=== PATIENT | male | born 1975 | race African-American/Black ===

== ENCOUNTER 2018-08-15 19:07 | Observation (INO) | payer OTHER ==
--- NOTE | 2018-08-15 19:11 | EDM.PDOC ---
ED HPI GENERAL MEDICAL PROBLEM - General Stated Complaint: AMBULANCE- Time Seen by Provider: 08/15/18 19:08 - History of Present Illness INITIAL COMMENTS - FREE TEXT/NARRATIVE: HISTORY AND PHYSICAL: History of present illness: Patient is a 42-year-old male who presents status post left ankle injury in which he missed a step going down stairs and sustained what appears to be an obvious fracture of his left ankle. He denies other trauma or concern. Review of systems: As per history of present illness and below otherwise all systems reviewed and negative. Past medical history: As per history of present illness and as reviewed below otherwise noncontributory. Surgical history: As per history of present illness and as reviewed below otherwise noncontributory. Social history: No reported history of drug or alcohol abuse. Family history: As per history of present illness and as reviewed below otherwise noncontributory. Physical exam: HEENT: Atraumatic, normocephalic, pupils reactive, negative for conjunctival pallor or scleral icterus, mucous membranes moist, throat clear, neck supple, nontender, trachea midline. Lungs: Clear to auscultation, breath sounds equal bilaterally, chest nontender. Heart: S1S2, regular, negative for clicks, rubs, or JVD. Abdomen: Soft, nondistended, nontender. Negative for masses or hepatosplenomegaly. Negative for costovertebral tenderness. Pelvis: Stable nontender. Genitourinary: Deferred. Rectal: Deferred. Extremities: Left ankle has seemingly obvious fracture noted noted with swelling and tenderness neurovascular exam is unremarkable. Neuro: Awake, alert, oriented. Cranial nerves II through XII unremarkable. Cerebellum unremarkable. Motor and sensory unremarkable throughout. Exam nonfocal. Diagnostics: X-ray left ankle Therapeutics: Posterior mold left ankle Impression: #1 acute left ankle injury (fracture) Definitive disposition and diagnosis as appropriate pending reevaluation and review of above. - Related Data Allergies Allergy/AdvReac Type Severity Reaction Status Date / Time No Known Allergies Allergy Verified 08/15/18 19:22 Home Meds: Home Meds . [No Known Home Meds] 08/15/18 [History] ED ROS GENERAL - Review of Systems Review Of Systems: ROS reveals no pertinent complaints other than HPI. ED EXAM, GENERAL - Physical Exam Exam: See Below (See dictation) Course - Vital Signs Last Recorded V/S: Last Vital Signs Temp 35.8 C 08/15/18 19:17 Pulse 80 08/15/18 19:17 Resp 16 08/15/18 19:17 BP 127/76 08/15/18 19:17 Pulse Ox 94 L 08/15/18 19:17 - Orders/Labs/Meds Orders: Active Orders 24 hr Category Date Time Status Patient Status [ADT] Routine ADT 08/15/18 21:06 Active Bedrest Bathroom Privileges [RC] ASDIRECTED Care 08/15/18 21:12 Active Communication Order [RC] DAILY Care 08/15/18 21:10 Active Verify Patient Consent Obtain [RC] ASDIRECTED Care 08/15/18 21:09 Active Vital Signs [RC] PER UNIT ROUTINE Care 08/15/18 21:10 Active Nothing per Oral After Midnight Diet [DIET] Diet 08/16/18 Breakfast Active Ankle 2V Lt [CR] Stat Exams 08/15/18 20:48 Taken Ankle wo Cont Lt [CT] Stat Exams 08/15/18 20:48 Taken Acetaminophen/oxyCODONE [Percocet 325-5 MG] Med 08/15/18 21:08 Active 1 tab PO Q4H PRN Lactated Ringers [Ringers, Lactated] 1,000 ml Med 08/16/18 03:00 Active IV ASDIRECTED Ondansetron [Zofran] Med 08/15/18 21:08 Active 4 mg IVPUSH Q4H PRN Medication Orders Lactated Ringer's (Ringers, Lactated) 1,000 mls @ 75 mls/hr IV ASDIRECTED [facility] Ondansetron HCl (Zofran) 4 mg IVPUSH Q4H PRN PRN Reason: Nausea/Vomiting Oxycodone/Acetaminophen (Percocet 325-5 Mg) 1 tab PO Q4H PRN PRN Reason: Pain Meds: Medications Generic Name Dose Route Start Last Admin Trade Name Freq PRN Reason Stop Dose Admin Lactated Ringer's 1,000 mls @ 75 mls/hr 08/16/18 03:00 Ringers, Lactated IV ASDIRECTED SAUL Ondansetron HCl 4 mg 08/15/18 21:08 Zofran IVPUSH Q4H PRN Nausea/Vomiting Oxycodone/Acetaminophen 1 tab 08/15/18 21:08 Percocet 325-5 Mg PO Q4H PRN Pain Discontinued Medications Generic Name Dose Route Start Last Admin Trade Name Angelia PRN Reason Stop Dose Admin Hydromorphone HCl Confirm 08/15/18 20:30 Dilaudid Administered 08/15/18 20:31 Dose 2 mg .ROUTE .STK-MED ONE Lidocaine HCl Confirm 08/15/18 20:24 Xylocaine-Mpf 1% Administered 08/15/18 20:25 Dose 5 mls @ as directed .ROUTE .STK-MED ONE Lidocaine HCl Confirm 08/15/18 20:26 Xylocaine-Mpf 1% Administered 08/15/18 20:27 Dose 5 mls @ as directed .ROUTE .STK-MED ONE Departure - Departure Time of Disposition: 21:29 Disposition: Refer to Observation Condition: Good Clinical Impression: Ankle fracture - Discharge Information
--- NOTE | 2018-08-15 20:13 | CR ---
Pain fall. Three views of the left ankle FINDINGS: Displaced fractures of the medial and lateral malleolus. Fractures of the distal fibula. Oblique fracture through the posterior distal tibia. Ankle dislocation with posterior displacement of talus in relationship to the tibia. Diffuse soft tissue swelling. Findings consistent with trimalleolar fracture with ankle dislocation. Dictated by Zenaida Arthur MD @ Aug 15 2018 8:01PM Signed by Dr. Zenaida Arthur @ Aug 15 2018 8:10PM
[2018-08-15] MEDS ORDERED: HYDROmorphone 2 MG/ML SDV IVPUSH ONE (20:30)
[2018-08-15] MEDS ORDERED: HYDROmorphone 2 MG/ML Syringe ONE (20:30)
[2018-08-15] MEDS ORDERED: Ondansetron 4 MG/2 ML SDV IVPUSH PRN (21:08)
--- NOTE | 2018-08-15 22:28 | CR ---
INDICATION: post reduction evaluation. COMPARISON: X-rays earlier the same day. FINDINGS: AP and cross-table lateral views of the left ankle demonstrate interval reduction and splinting of previously seen trimalleolar fracture dislocation injury. Alignment is near anatomic. No new acute osseous or soft tissue findings. IMPRESSION: Interval reduction and splinting of previously seen trimalleolar fracture-dislocation injury. Dictated by Petr Martinez MD @ 08/15/2018 10:24:04 PM Dictated by: Petr Martinez MD @ 08/15/2018 22:24:25 (Electronically Signed)
--- NOTE | 2018-08-15 22:38 | CT ---
INDICATION: Pain after fall. COMPARISON: Plain film same date. TECHNIQUE: Multi detector imaging left ankle with axial coronal and sagittal reformats. FINDINGS: Minimally comminuted fracture through the medial malleolus with 5 mm diastasis. Dominant fragment slightly anteriorly displaced as well. Fracture through the posterior malleolus with roughly 3 mm elevation of the fracture fragment causing mild incongruity of the articular contour. Stippled bony debris within the joint centrally as well as a displaced fragment in the posterior recess. None are measurably large. A few foci periarticular air along the anterior joint margin. Air in the soft tissues superficial to the extensor tendons. No air within the joint. Lateral malleolar fracture is intra-articular to the syndesmosis with 3-5 mm dorsal diastasis of the fracture fragment. Fracture extends to the tibiotalar ankle joint at the mortise but without displacement here. Hindfoot and visualized midfoot are normal. IMPRESSION: 1. Trimalleolar fracture with intra-articular tiny bony debris fragments in the tibiotalar ankle joint. Ankle mortise appears relatively maintained however there is some incongruity of the posterior tibial plafond articular contour and moderate diastasis across the medial malleolar fracture at the articular margin. 2. Air in the soft tissue anterior from the joint may be laceration related. Compound fracture felt unlikely given the pattern of fracture. Some of the deeper soft tissue may be nitrogen from traumatic vacuum phenomenon. Please note that all CT scans at this facility use dose modulation, iterative reconstruction, and/or weight-based dosing when appropriate to reduce radiation dose to as low as reasonably achievable. Dictated by Joseluis Cameron MD @ Aug 16 2018 8:29AM Signed by Dr. Joseluis Cameron @ Aug 16 2018 8:35AM
--- NOTE | 2018-08-15 23:36 | HP ---
DATE OF : 1975 PRIMARY CARE PHYSICIAN: Israel PCP DATE OF PLANNED SURGERY: 08/16/2018 HISTORY OF PRESENT ILLNESS: The patient presented to the ER this evening following a trip and fall while climbing down the stairs at approximately 6 p.m. He noted immediate pain, swelling, and deformity involving the ankle at that time. He denies additional injuries associated with the event. He denied pain involving other locations. He did not hit his head or lose consciousness. He had about 3 alcoholic drinks earlier in the afternoon. He denies previous injuries or issues with respect to this ankle. PAST MEDICAL HISTORY: The patient denies known medical issues although he does not see a doctor on a regular basis. PAST SURGICAL HISTORY: None. SOCIAL HISTORY: He smokes about one-half pack of cigarettes per day. He says that he has about 4 alcoholic drinks every other day on average. I asked both the patient and his , and he does not need to drink on a daily basis. He can go several days without drinking, without having any type of withdrawal symptoms. He is employed, working at an [employer] field. FAMILY HISTORY: Noncontributory. REVIEW OF SYSTEMS: He has been in his normal state of health recently. He denies a personal or family history of DVT/PE or bleeding/clotting problems associated with surgery. He has been in his normal state of health recently. PHYSICAL EXAMINATION: GENERAL: Reveals a well-appearing gentleman. He is in mild distress. HEART: He has a regular pulse by peripheral evaluation. LUNGS: There is no wheezing, and he has nonlabored respiration. HEENT: He is normocephalic and atraumatic. NEUROLOGIC: He displays appropriate judgment and normal affect. EXTREMITIES: Examination of his bilateral upper extremities as well as right lower extremity showed no evidence of trauma. No pain with active or passive range of motion. Examination of the left lower extremity shows no obvious bruising, swelling, or pain with palpation around the knee or hip. There is obvious swelling and deformity of the ankle. I do not see any lacerations or open areas indicative of open fracture. He does have a palpable dorsalis pedis pulse in spite of the obvious dislocation of the ankle. He has grossly intact sensation to light touch in the deep peroneal, superficial peroneal, and tibial nerve distributions. DIAGNOSTIC DATA: Results reviewed. Plain films of the ankle were reviewed. These show an obvious fracture/dislocation with posterior and lateral dislocation of the talus in relation to the tibia. There does appear to be a trimalleolar fracture with a small posterior malleolar component. ASSESSMENT: Left ankle fracture/dislocation. PLAN: I talked to the patient as well as his partner for some time. I recommend urgent reduction of the ankle followed by surgical fixation on a delayed basis. This could either be done tomorrow or delayed for 1 to 2 weeks. They prefer to have the surgery done tomorrow, so we will go ahead and admit the patient to the floor with plans for surgical intervention tomorrow. He will be n.p.o. at midnight. A closed reduction after a local block was performed in the emergency department. Please see the procedure note below. PROCEDURE NOTE: I initially injected a total of 10 mL of lidocaine intra-articularly following a thorough prep with ChloraPrep. When adequate analgesia was obtained, the ankle was reduced. It was quite unstable, but I was able to hold the reduction when a posterior and U-splint was placed. I molded this appropriately to maintain the reduction. The patient tolerated the procedure well, and there were no complications. Informed consent: Following a thorough discussion of the risks, benefits, expected outcomes, and alternatives, the patient did consent for the local block as well as reduction as described above. We also discussed surgical intervention to be performed tomorrow. A thorough discussion of the risks, benefits, expected outcomes, and alternatives of ankle ORIF was performed. Potential complications were discussed to include, but not limited to infection, neurovascular injury, hardware-related pain, failure or prominence, failure of the fracture to heal, persistent pain or disability in spite of surgery, need for additional surgery, and rarely loss of limb or life. In light of this information, the patient did wish to proceed with the operation. RICH / BAKARI /[id number]
[2018-08-16] MEDS: Lactated Ringers 1,000 ML IV SCH ×2 (03:12→22:04)
[2018-08-16] MEDS: Acetaminophen/oxyCODONE 325-5 MG Tab PO PRN ×2 (04:33→21:59)
[2018-08-16] MEDS ORDERED: ceFAZolin 2 GM in Premix Bag 1 BAG IV ONE (08:01)
--- NOTE | 2018-08-16 08:24 | PN ---
SUBJECTIVE: The patient reports overall he has done well overnight. He denies substantial pain involving the ankle. He denies additional questions regarding the planned surgical intervention for today. OBJECTIVE: VITAL SIGNS: The patient is afebrile. Vital signs were reviewed. He is saturating 92% on 2 L of oxygen via nasal cannula. EXTREMITIES: Examination of the ankle shows the splint to be in place. There is brisk capillary refill of the toes. He reports intact sensation to light touch involving the exposed portion of the dorsal and plantar aspect of the toes including the first dorsal interspace. He is able to flex and extend the toes. DIAGNOSTIC DATA: Results reviewed. Plain films and CT from last night were previously reviewed. These did confirm reduction as well as a trimalleolar fracture with a small posterior malleolar component, this involves less than 20% of the joint surface. ASSESSMENT: Status post reduction of ankle fracture-dislocation with planned definitive operative intervention for today. PLAN: Plan is to proceed with surgery as previously described. He will remain n.p.o. I will plan on fixation of the lateral and medial malleolar fractures with possible syndesmotic fixation as well. He will potentially be discharged to home following the operation versus tomorrow morning, if additional pain management is required. RICH / BAKARI /[id number]
[2018-08-16] MEDS ORDERED: Propofol 200 MG/20 ML SDV ONE (12:25)
[2018-08-16] MEDS ORDERED: Midazolam 1 MG/ML 2 ML SDV ONE (12:25)
[2018-08-16] MEDS ORDERED: Lidocaine 2% 5 ML SDV ONE (12:25)
[2018-08-16] MEDS ORDERED: Ondansetron 4 MG/2 ML SDV ONE (12:25)
[2018-08-16] MEDS ORDERED: fentaNYL 250 MCG/5 ML SDV ONE (12:25)
--- NOTE | 2018-08-16 13:55 | PCM.PREANE ---
Preanesthetic Assessment - Anesthesia/Transfusion/Family Hx Anesthesia History: Prior Anesthesia Without Reaction Family History of Anesthesia Reaction: No Transfusion History: No Prior Transfusion(s) - Review of Systems General: No Symptoms Pulmonary: No Symptoms Cardiovascular: No Symptoms Gastrointestinal: No Symptoms Neurological: No Symptoms Other: Reports: None - Physical Assessment NPO Status Date: 08/15/18 O2 Sat by Pulse Oximetry: 97 Respiratory Rate: 16 Vital Signs: Last Vital Signs Temp 98.2 F 08/16/18 12:00 Pulse 73 08/16/18 12:00 Resp 16 08/16/18 12:00 BP 131/94 H 08/16/18 12:00 Pulse Ox 97 08/16/18 12:00 Height: 6 ft 1 in Weight: 98.458 kg ASA Class: 2 Mental Status: Alert & Oriented x3 Airway Class: Mallampati = 2 Dentition: Reports: Missing Tooth/Teeth ROM/Head Extension: Full Lungs: Clear to Auscultation, Normal Respiratory Effort Cardiovascular: Regular Rate, Regular Rhythm - Allergies Allergies/Adverse Reactions: Allergies Allergy/AdvReac Type Severity Reaction Status Date / Time No Known Allergies Allergy Verified 08/15/18 19:22 - Blood Blood Available: No - Anesthesia Plan Pre-Op Medication Ordered: None - Acknowledgements Anesthesia Type Planned: General Anesthesia Pt an Appropriate Candidate for the Planned Anesthesia: Yes Alternatives and Risks of Anesthesia Discussed w Pt/Guardian: Yes Pt/Guardian Understands and Agrees with Anesthesia Plan: Yes Additional Comments: anes prob list: smoker PLAN: ga/lma PreAnesthesia Questionnaire - Past Health History Medical/Surgical History: Denies Medical/Surgical History - Past Surgical History GI Surgical History: Reports: Cholecystectomy - SUBSTANCE USE Smoking Status *Q: Current Every Day Smoker Tobacco Use Within Last Twelve Months: Cigarettes Second Hand Smoke Exposure: Yes Recreational Drug Use History: No - HOME MEDS Home Medications: Home Meds . [No Known Home Meds] 08/15/18 [History] - CURRENT (IN HOUSE) MEDS Current Meds: Current Medications Lactated Ringer's (Ringers, Lactated) 1,000 mls @ 75 mls/hr IV ASDIRECTED [facility] Last Admin: 08/16/18 03:12 Dose: 75 mls/hr Ondansetron HCl (Zofran) 4 mg IVPUSH Q4H PRN PRN Reason: Nausea/Vomiting Oxycodone/Acetaminophen (Percocet 325-5 Mg) 1 tab PO Q4H PRN PRN Reason: Pain Last Admin: 08/16/18 04:33 Dose: 1 tab Discontinued Medications Fentanyl (Sublimaze) Confirm Administered Dose 250 mcg .ROUTE .STK-MED ONE Stop: 08/16/18 12:26 Hydromorphone HCl (Dilaudid) Confirm Administered Dose 2 mg .ROUTE .STK-MED ONE Stop: 08/15/18 20:31 Last Admin: 08/16/18 00:21 Dose: Not Given Hydromorphone HCl (Dilaudid) 2 mg IVPUSH ONETIME ONE Stop: 08/15/18 20:31 Last Admin: 08/15/18 20:30 Dose: 2 mg Lidocaine HCl (Xylocaine-Mpf 1%) Confirm Administered Dose 5 mls @ as directed .ROUTE .STK-MED ONE Stop: 08/15/18 20:25 Last Admin: 08/16/18 00:48 Dose: Not Given Lidocaine HCl (Xylocaine-Mpf 1%) Confirm Administered Dose 5 mls @ as directed .ROUTE .STK-MED ONE Stop: 08/15/18 20:27 Last Admin: 08/16/18 00:52 Dose: Not Given Cefazolin Sodium/Dextrose 2 gm (/ Premix) 50 mls @ 100 mls/hr IV ONCALL ONE Stop: 08/16/18 08:30 Lidocaine (Xylocaine-Mpf 2%) Confirm Administered Dose 5 ml .ROUTE .STK-MED ONE Stop: 08/16/18 12:26 Lidocaine HCl (Xylocaine-Mpf 1%) 10 ml INJECT ONETIME ONE Stop: 08/15/18 20:26 Last Admin: 08/15/18 20:25 Dose: 10 ml Midazolam HCl (Versed 1 Mg/Ml) Confirm Administered Dose 2 mg .ROUTE .STK-MED ONE Stop: 08/16/18 12:26 Ondansetron HCl (Zofran) Confirm Administered Dose 4 mg .ROUTE .STK-MED ONE Stop: 08/16/18 12:26 Propofol (Diprivan 20 Ml) Confirm Administered Dose 200 mg .ROUTE .STK-MED ONE Stop: 08/16/18 12:26
[2018-08-16] MEDS ORDERED: Bupivacaine 0.25% 10 ML SDV ONE ×2 (14:12→17:28)
[2018-08-16] MEDS ORDERED: Glycopyrrolate 0.2 MG/ML SDV ONE ×2 (15:54→15:58)
[2018-08-16] MEDS ORDERED: Metoprolol Tartrate 5 MG/5 ML SDV ONE (16:05)
[2018-08-16] MEDS ORDERED: Phenylephrine/Normal Saline 100 MCG/ML 10 ML Syringe ONE ×2 (16:07→17:17)
[2018-08-16] MEDS ORDERED: Atropine 0.1 MG/ML 10 ML Syringe IVPUSH PRN ×2 (17:05)
[2018-08-16] MEDS ORDERED: Albuterol 0.083% 2.5 MG/3 ML Neb Soln NEB PRN (17:05)
[2018-08-16] MEDS ORDERED: Naloxone 0.4 MG/ML Syringe IVPUSH PRN (17:05)
[2018-08-16] MEDS ORDERED: 50% Dextrose in Water 50 ML Syringe IVPUSH PRN (17:05)
[2018-08-16] MEDS ORDERED: fentaNYL 100 MCG/2 ML SDV IVPUSH PRN (17:05)
[2018-08-16] MEDS ORDERED: EPINEPHrine 1:10,000 1 MG/10 ML Syringe IVPUSH PRN (17:05)
[2018-08-16] MEDS ORDERED: Ketorolac 30 MG/ML SDV ONE (17:35)
--- NOTE | 2018-08-16 18:11 | PCM.OPNOTE ---
- General Post-Op/Procedure Note Date of Surgery/Procedure: 08/16/18 Findings: Left ankle fracture/ dislocation Post-Op Diagnosis: Left ankle fracture dislocation Anesthesia Technique: General LMA Primary Surgeon: Alvaro Humphrey EBL in mLs: 20 Condition: Good Free Text/Narrative:: Intake & Output 08/16/18 08/16/18 08/16/18 06:59 14:59 22:59 Intake Total 1333 Output Total 0 Balance 1333
--- NOTE | 2018-08-16 18:26 | PCM.POSTAN ---
POST ANESTHESIA ASSESSMENT - MENTAL STATUS Mental Status: Alert, Oriented - VITAL SIGNS Pulse Rate: 98 SaO2: 96 (3LPM) Resp Rate: 16 Blood Pressure: 129/92 - RESPIRATORY Respiratory Status: Respiratory Rate WNL, Airway Patent, O2 Saturation Stable, Supplemental Oxygen - CARDIOVASCULAR CV Status: Pulse Rate WNL, Blood Pressure Stable - GASTROINTESTINAL GI Status: No Symptoms - PAIN Pain Score: 5 - POST OP HYDRATION Hydration Status: Adequate & Stable
--- NOTE | 2018-08-16 20:45 | OR ---
SURGEON: MARIFER SALDANA MD DATE OF PROCEDURE: 08/16/2018 PRIMARY SURGEON: Marifer Saldana MD ANESTHESIA: General anesthesia with local infiltration of Marcaine at the completion of the case. PREOPERATIVE DIAGNOSIS: Trimalleolar fracture-dislocation of left ankle. POSTOPERATIVE DIAGNOSIS: Trimalleolar fracture-dislocation of left ankle. OPERATION PERFORMED: Open reduction and internal fixation, left ankle. COMPLICATIONS: None. ESTIMATED BLOOD LOSS: 20. TOURNIQUET TIME: 64 minutes at 250 mmHg. INDICATIONS: The patient is a 42-year-old gentleman who sustained a fall while climbing down the stairs yesterday resulting in a fracture-dislocation of his left ankle. I saw him in the emergency department yesterday evening, where a closed reduction and splinting was performed. He was admitted overnight with plans for definitive operative fixation today. I did recommend surgical fixation given the unstable nature of the fracture. Following a thorough discussion of the risks, benefits, expected outcomes, and alternatives as previously documented, the patient did wish to proceed for surgery. DESCRIPTION OF PROCEDURE: I saw the patient in the preoperative holding area. The operative site was marked. He was brought back to the operating room. General anesthesia was administered by the anesthesia team. He received 2 g of Ancef preoperatively. He was positioned supine with a bump under the ipsilateral hip. He was then prepped and draped in the normal sterile fashion. Prior to the prepping, I also used alcohol wipes and thoroughly cleaned the leg and toes. Following a multi- disciplinary time-out, the Esmarch bandage was applied, and tourniquet was inflated to 250 mmHg. I initially made a lateral approach to the distal fibula. Care was taken proximally to dissect and protect the superficial peroneal nerve. The fracture site was identified. Hematoma was removed. A clamp was placed, and a lag screw was used to ensure an anatomic reduction and compression across the fracture site. A Bartley VariAx plate was then placed. This was secured with 1 nonlocking screw distally and proximally, 2 additional locking screws proximally, and 3 additional locking screws distally. Attention was then turned towards the medial side. An incision over the medial malleolus was made. Careful dissection was used to avoid inadvertent injury to the saphenous vein or nerve. This was a grossly unstable fracture medially with a large amount of associated soft tissue damage. The fracture edges were cleaned. The fracture site as well as the joint were thoroughly irrigated to remove any possible loose bodies. The reduction was performed and secured with a clamp. I then secured the fracture with two 4.0 cannulated screws. Position of all hardware was checked under fluoroscopic guidance throughout the case. Fluoroscopic imaging was again performed at this time including stress views. There did not seem to be obvious widening of the syndesmosis with stress views. However, this is a grossly unstable fracture with an associated small posterior malleolar fragment. Given this fact, I did feel that additional syndesmotic fixation as back up was likely appropriate. I performed this through the remaining open screw hole on the lateral side. I did have to aim a bit more proximally to avoid the medial malleolar screws. This was done with the [employer] ZipTight device. Care was taken to drill as well as place the device with the ankle in dorsiflexion to avoid excessive tightening across the site. The ankle was then again thoroughly irrigated at this time. Tourniquet was deflated. Hemostasis was obtained. Closure occurred in layers. I was able to close the deeper layer over the plate on the lateral side and closed both sides with additional 2-0 Vicryl and a running nylon suture. A total of 20 mL of 0.5% Marcaine without epinephrine was injected at this time for postoperative analgesia. A sterile dressing as well as a splint was applied. The patient was then awoken from anesthesia and transferred to Recovery in stable condition. Postoperative plan will include likely admission for monitoring overnight given the fact that it is late in the afternoon. We will give Ancef while he is in the hospital for continued antibiotic prophylaxis. He will be strict nonweightbearing on the left lower extremity in a splint. We will ensure that he is safe with crutches with physical therapy prior to discharge to home. We will plan to see him back in clinic in 10 to 14 days. At that time, x-ray should be obtained out of the splint. Assuming these look okay, I anticipate transition into a nonweightbearing cast for an additional 4 weeks given the severe unstable nature of this fracture pattern. I discussed the case with the patient as well as his following the procedure. If they have issues or concerns in the interim, they know that they can call clinic to follow up sooner. RICH / BAKARI /[id number] [id number]
[2018-08-16] MEDS: ceFAZolin 2 GM in Premix Bag 1 BAG IV SCH (22:54)
[2018-08-17] MEDS: Acetaminophen/oxyCODONE 325-5 MG Tab PO PRN ×3 (06:00→14:25)
[2018-08-17] MEDS: ceFAZolin 2 GM in Premix Bag 1 BAG IV SCH ×2 (06:05→14:27)
[2018-08-17] MEDS ORDERED: Morphine 2 MG/ML Syringe IVPUSH ONE (08:07)
[2018-08-17] MEDS ORDERED: Aspirin 325 MG Tab.EC PO SCH (09:00)
--- NOTE | 2018-08-17 09:40 | PN ---
SUBJECTIVE: The patient reports that he did okay overnight. He has had increasing pain this morning likely as the Marcaine injected around the incision sites has worn off. He has been elevating. He denies chest pain, shortness of breath, or other complaints.\ OBJECTIVE: VITAL SIGNS: The patient has been afebrile. Other vital signs have been reviewed and are stable. He is down to about a liter of oxygen this morning and is saturating in the high 90s. EXTREMITIES: Evaluation of left lower extremity shows the splint to be in place. There is brisk capillary refill to the toes. He reports intact sensation to light touch involving the dorsal and plantar aspect of the toes. He is able to flex and extend the toes within the confines of the splint. The splint is clean and dry. ASSESSMENT: Postoperative day 1 status post open reduction and internal fixation of a left ankle fracture dislocation. PLAN: We will continue with pain control using Percocet. I did not want to give more intravenous medications at this time as he has had some low saturations likely given his smoking history. We will continue with strict elevation. He should be seen by physical therapy and crutches issued this morning. We need to ensure that he can mobilize well nonweightbearing. After this is completed, we will plan on discharge to home today. [facility]up [facility] will be scheduled for 10-14 days from now. He will have routine cares at home including an aspirin daily, Percocet for pain control, and Colace as needed. I did discuss in depth today the importance of smoking cessation with respect to optimizing fracture healing as well as minimizing the risk of wound complications or infection. RICH VILLEGAS /[id number]
--- NOTE | 2018-08-19 10:03 | CR ---
EXAMINATION: Left ankle HISTORY: ORIF COMPARISON: 08/15/2018 TECHNIQUE: 4 fluoroscopic images provided FINDINGS/IMPRESSION: Operative control films demonstrate screw and plate fixation of a distal fibular fracture with a syndesmotic anchor. 2 screws fixate the medial malleolus.
== END 2018-08-17 15:45 | disposition home or self-care (01) ==
LOC: MW.ED 19:07 → MW.MS 21:13
PROVIDERS: ADMIT Orthopaedic Surgery; ATTEND Orthopaedic Surgery
DX: S82.852A Displaced trimalleolar fracture of left lower leg, initial encounter for closed fracture (principal); F17.210 Nicotine dependence, cigarettes, uncomplicated; W01.0XXA Fall on same level from slipping, tripping and stumbling without subsequent striking against object, initial encounter
CPT/HCPCS: 27823; 73600; 73610; 73700; 96361; 96374; 97161; 97530; 99284; A4217; A9270; C1713; C1769; C1776; G0378; J0690; J1170; J1885; J2001; J2250; J2270; J2370; J2405; J2704; J3010; J3490; J7120